=== PATIENT | female | born 1985 | race Caucasian/White ===

== ENCOUNTER 2021-05-17 19:19 | Emergency (ER) | payer BC ==
[~2021-05-17] VITALS: Ht 175.3 cm; Wt 102.3 kg
[2021-05-17 19:20] VITALS: BP 135/96
== END 2021-05-17 20:18 ==
LOC: ER 19:19
DX: S20.212A Contusion of left front wall of thorax, initial encounter (principal); Z88.1 Allergy status to other antibiotic agents; V89.2XXA Person injured in unspecified motor-vehicle accident, traffic, initial encounter; Y93.89 Activity, other specified; Y92.89 Other specified places as the place of occurrence of the external cause; Y99.8 Other external cause status
CPT/HCPCS: 99283

== ENCOUNTER 2022-01-22 05:44 | Day surgery (SDC) | payer BC ==
[2022-01-15 15:39] LABS: BASOPHILS % (AUTO) 0.8 % (0-1); EOSINOPHILS # (AUTO) 0.2 X10'3 (0-0.9); EOSINOPHILS % (AUTO) 3.6 % (0-6); LYMPHOCYTES # (AUTO) 1.4 X10'3 (1.1-4.8); LYMPHOCYTES % (AUTO) 29.7 % (21-51); MEAN CORPUSCULAR HEMOGLOBIN 34.3 PG (27.0-31.0); MEAN CORPUSCULAR HGB CONC 33.9 g/dL (33.0-36.5); MEAN CORPUSCULAR VOLUME 101.4 FL (78-98); MEAN PLATELET VOLUME 9.1 FL (7.4-10.4); MONOCYTES # (AUTO) 0.4 X10'3 (0-0.9); MONOCYTES % (AUTO) 9.4 % (2-12); NEUTROPHILS # (AUTO) 2.6 X10'3 (1.8-7.7); NEUTROPHILS % (AUTO) 56.5 % (42-75); PRE OP HEMATOCRIT 38.6 % (35.0-45.0); PRE OP HEMOGLOBIN 13.1 g/dL (12.0-16.0); PRE OP PLATELET COUNT 188 X10'3 (140-440); RED BLOOD COUNT 3.81 X10'6 (4.20-5.60); RED CELL DISTRIBUTION WIDTH 13.3 % (11.5-14.5)
[2022-01-15 15:47] LABS: CLARITY,URINE CLEAR (Clear); COLOR,URINE YELLOW (Yellow); GLUCOSE, URINE NEGATIVE (Neg); KETONES,URINE NEGATIVE (Neg); LEUKOCYTE ESTERASE ,URINE NEGATIVE (Neg); NITRITES, URINE NEGATIVE (Neg); OCCULT BLOOD,URINE NEGATIVE (Neg); PH,URINE 6.5 (4.8-8.0); PROTEIN,URINE NEGATIVE (Neg); UROBILINOGEN,URINE 0.2 E.U/dL (0.2-1.0)
[2022-01-15 15:49] LABS: UA COLLECTION TYPE CLN CATCH MIDSTREAM
[2022-01-15 15:57] LABS: ALBUMIN 4.4 G/DL (3.4-5.0); ALBUMIN/GLOBULIN RATIO 1.5 (1.1-1.5); ALKALINE PHOSPHATASE 45 IU/L (46-116); BLOOD UREA NITROGEN 21 MG/DL (7-18); BUN/CREATININE RATIO 25.3 (6.6-38.0); CALCIUM 8.9 MG/DL (8.5-10.1); CHLORIDE 104 MMOL/L (99-107); CREATININE 0.83 MG/DL (0.40-0.90); PRE OP ALT 39 U/L (30-65); PRE OP ANION GAP 5 (8-16); PRE OP AST 22 U/L (10-37); PRE OP BILIRUB, TOTAL 0.6 MG/DL (0.0-1.0); PRE OP GLUCOSE 90 MG/DL (70-104); PRE OP SODIUM 138 MMOL/L (135-145); TOTAL CARBON DIOXIDE 28.9 MMOL/L (24-32); TOTAL PROTEIN 7.4 G/DL (6.4-8.2); eGFR 78 ML/MIN
[2022-01-15 16:24] LABS: HCG SERUM QL NEGATIVE
[2022-01-22] VITALS (8 sets, daily range): BP systolic 89–128; BP diastolic 49–75
[~2022-01-22] VITALS: Ht 175.3 cm; Wt 103.9 kg
[~2022-01-22 05:44] MED LIST: NO HOME MEDS; clindamycin-Cleocin 900mg/D5W 50 ML IV ONE; famotidine 20mg tablet PO ONE; gentamicin inj 80 MG in normal saline 100ml IV soln 98 ML IV ONE; ringers solution, lacted 1,000 ML IV SCH
[2022-01-22] MEDS ORDERED: ondansetron/PF 4mg/2ml inj IV PRN (07:10)
[2022-01-22] MEDS ORDERED: fentaNYL/PF 50MCG/1 ML 2ML syringe IV PRN ×2 (07:10)
[2022-01-22] MEDS ORDERED: ringers solution, lacted 1,000 ML IV SCH (07:10)
[2022-01-22] MEDS ORDERED: labetalol 20mg/4ml (5mg/ml) syringe IV PRN (07:10)
[2022-01-22] MEDS ORDERED: hydrALAZINE 20mg/ml inj. IV PRN (07:10)
[2022-01-22] MEDS ORDERED: morphine 4 MG/ML inj SYRINge IV PRN (07:10)
[2022-01-22] MEDS ORDERED: morphine 2 MG/ML inj. syringe IV PRN (07:10)
[2022-01-22] MEDS ORDERED: LIDOcaine 1% (10mg/ml)w/preservative inj. 20ml MDV ONE (07:58)
[2022-01-22] MEDS ORDERED: sevoflurane 250ml liquid IH ONE (07:58)
[2022-01-22] MEDS ORDERED: fentaNYL/PF 50MCG/1 ML 2ML syringe ONE (08:06)
[2022-01-22] MEDS ORDERED: propofol inj 20 ML IV ONE (08:07)
[2022-01-22] MEDS ORDERED: midazolam 1 mg/ML 2ml injection ONE (08:07)
[2022-01-22] MEDS ORDERED: ondansetron/PF 4mg/2ml inj ONE (08:12)
[2022-01-22] MEDS ORDERED: dexamethasone sod phosphate 4mg/ml inj. ONE (08:12)
[2022-01-22] MEDS ORDERED: ketorolac trometh. 30mg/ml inj. ONE (08:29)
--- NOTE | 2022-01-22 08:46 | NUR ---
Received from OR via sarai , accompanied by Anesthesiologist Antwan and report given by Anesthesiolgist. 20g IV LUE running LR at 100 cc/hr. [address] CDI. 10L MASK AT 100% O2 SAT.PATIENT DENIES PAIN AND NAUSEA. VSS. Addendum: 01/22/22 at 0859 by Harsha Fairbanks RN Amended: Links added.
--- NOTE | 2022-01-22 09:46 | NUR ---
ALL DISCHARGE CRITERIA HAS BEEN MET. VSS, PAIN AT A TOLERABLE LEVEL, ABLE TO SAFELY AMBULATE AND TRANSFER SELF. IV TAKEN OUT WITHOUT ANY COMPLICATIONS. ALL DISCHARGE INSTRUCTIONS COVERED WITH PATIENT AND ALL QUESTIONS ANSWERED. PATIENT TAKEN OUT VIA WHEELCHAIR TO PERSONAL VEHICLE WHERE FAMILY/FRIEND DROVE PATIENT HOME. Addendum: 01/22/22 at 0950 by Harsha Fairbanks RN Amended: Links added.
== END 2022-01-22 09:46 | disposition home or self-care (01) ==
LOC: PAS 05:44
PROVIDERS: ATTEND Obstetrics & Gynecology Obstetrics
DX: N92.1 Excessive and frequent menstruation with irregular cycle (principal); N85.8 Other specified noninflammatory disorders of uterus; Z30.430 Encounter for insertion of intrauterine contraceptive device; N84.0 Polyp of corpus uteri; E66.9 Obesity, unspecified; Z68.34 Body mass index [BMI] 34.0-34.9, adult; D64.9 Anemia, unspecified; F32.A Depression, unspecified; Z79.899 Other long term (current) drug therapy; Z20.822 Contact with and (suspected) exposure to COVID-19; Z87.891 Personal history of nicotine dependence; Z88.0 Allergy status to penicillin; Z88.1 Allergy status to other antibiotic agents
CPT/HCPCS: 36415; 58300; 58558; 71046; 80053; 81003; 82948; 84703; 85025; 86885; 86900; 86901; 93005; J1100; J1580; J1885; J2250; J2405; J2704; J3010; J3490; J7030; J7120; U0003; U0005; Z7506; Z7512; A4355; A4618; A6258; A7000